=== PATIENT | female | born 1975 | race Two or more races ===

== ENCOUNTER 2023-10-13 20:18 | Inpatient (IN) | payer OTHER ==
[~2023-10-13] VITALS: Ht 137.2 cm; Wt 70.0 kg
[2023-10-13 21:28] LABS: Basophils # (auto) 0.1 10 ^3/uL (0-0.2); Basophils % (auto) 0.9 % (0.0-2.0); Eosinophils # (auto) 0.1 10 ^3/uL (0-0.8); Eosinophils % (auto) 0.8 % (0.0-7.0); Hematocrit 41.6 % (36.0-46.0); Hemoglobin 14.1 g/dL (12.2-16.2); Lymphocytes # (auto) 0.8 10 ^3/uL (0.4-5.4); Lymphocytes % (auto) 6.8 % (10.0-50.0); Mean Corpuscular Hemoglobin 32.3 pg (28.0-32.0); Mean Corpuscular Hgb Conc. 33.9 g/dL (32.0-36.0); Mean Corpuscular Volume 95.2 fL (80.0-100.0); Monocytes # (auto) 0.6 10 ^3/uL (0-1.3); Monocytes % (auto) 5.6 % (0.0-12.0); Neutrophils # (auto) 9.5 10 ^3/uL (1.6-8.6); Neutrophils % (auto) 85.9 % (37.0-80.0); Red Blood Cells 4.36 10^6/uL (4.0-5.20); White Blood Cell 11.1 10^3/uL (4.4-10.8)
[2023-10-13 21:45] VITALS: PULSE 128; RESP 26; O2SAT 97
[2023-10-13 21:57] LABS: Alanine Aminotransferase 31 U/L (7-40); Albumin 4.5 g/dL (3.2-4.8); Alkaline Phosphatase 107 U/L (46-116); Anion Gap 9 (5-15); Aspartate Aminotransferase 18 U/L (13-40); BUN/Creatinine Ratio 12.6 (10.0-20.0); Blood Urea Nitrogen 11 mg/dL (9-23); Calcium 9.9 mg/dL (8.7-10.4); Carbon Dioxide 23 mmol/L (20-30); Chloride 110 mmol/L (98-107); Glucose 130 mg/dL (74-106); Potassium 3.6 mmol/L (3.5-5.1); Sodium 142 mmol/L (136-145)
[2023-10-13 21:58] LABS: Bilirubin, Total 0.5 mg/dL (0.2-1.0); Total Protein 6.8 g/dL (5.7-8.2)
[2023-10-13 23:01] LABS: Urine Amorphous Crystal FEW /hpf (None Seen); Urine Bacteria FEW /hpf (None Seen); Urine Blood Negative /uL (Negative); Urine Clarity Clear (Clear); Urine Color Colorless (Yellow); Urine Protein, UAD Negative (Negative); Urine Specific Gravity 1.004 (1.001-1.035); Urine Urobilinogen Normal (Negative); Urine WBC 5 /hpf (0 - 5); Urine pH 6.5 (5.0-9.0)
[2023-10-13] MEDS: cloNIDine HCL 0.1 MG TAB PO ONE (23:12)
[2023-10-13] MEDS: LABETALOL HCL 20 MG/4 ML VL IV ONE (23:53)
[2023-10-14] VITALS (8 sets, daily range): BP systolic 111–129; BP diastolic 67–90; PULSE 73–89; RESP 16–18; TEMP 97.3–98; O2SAT 93–96
[2023-10-14] MEDS ORDERED: MORPHINE SULFATE INJ 2 MG/ml SYRG IV PRN (00:15)
[2023-10-14] MEDS ORDERED: ACETAMINOPHEN 325 MG TAB PO PRN (00:15)
[2023-10-14] MEDS ORDERED: NITROGLYCERIN 0.4 MG SL TAB SL PRN (00:15)
[2023-10-14] MEDS ORDERED: ONDANSETRON HCL 4 MG/2 ML VIAL IV PRN (00:15)
[2023-10-14] MEDS ORDERED: TEMAZEPAM 15 MG CAP PO PRN (00:15)
[2023-10-14] MEDS ORDERED: hydrALAZINE HCL 20 MG/ML VL IV ONE (02:15)
[2023-10-14 06:35] LABS: Anion Gap 7 (5-15); Carbon Dioxide 26 mmol/L (20-30); Chloride 108 mmol/L (98-107); Potassium 3.8 mmol/L (3.5-5.1); Sodium 141 mmol/L (136-145)
[2023-10-14 06:37] LABS: Calcium 9.5 mg/dL (8.7-10.4)
[2023-10-14 06:41] LABS: Glucose 83 mg/dL (74-106)
[2023-10-14 06:42] LABS: BUN/Creatinine Ratio 11.7 (10.0-20.0); Blood Urea Nitrogen 9 mg/dL (9-23)
[2023-10-14 17:03] LABS: Amphetamine Screen, Urine Neg (NEGATIVE); Benzodiazephine Screen, Urine Neg (NEGATIVE)
[2023-10-14 17:04] LABS: Barbiturate Scree,Urine Neg (NEGATIVE); Cannabinoid Screen, Urine Neg (NEGATIVE); Cocaine Screen, Urine Neg (NEGATIVE); Opiate Scree,Urine Neg (NEGATIVE); Phencyclidine Screen, Urine Neg (NEGATIVE)
[2023-10-15 01:00] VITALS: BP 121/79; PULSE 80; RESP 15; TEMP 97.9; O2SAT 97
[2023-10-15 05:00] VITALS: BP 110/68; PULSE 73; RESP 15; TEMP 97.6; O2SAT 98
[2023-10-15 08:00] VITALS: PULSE 69; RESP 15; O2SAT 100
[2023-10-15 08:30] VITALS: PULSE 91
[2023-10-15 09:00] VITALS: BP 113/72; PULSE 61; RESP 18; TEMP 98.4; O2SAT 97
[2023-10-15] MEDS ORDERED: METO25TA36 PO (11:39)
== END 2023-10-15 12:00 | disposition home or self-care (01) | DRG 310 ==
LOC: ER 20:18 → TELE 10-14 00:08 → TELE-EAST 10-14 03:05
PROVIDERS: ADMIT Nurse Practitioner; ATTEND Nurse Practitioner Acute Care
DX: R00.0 Tachycardia, unspecified (principal); R00.2 Palpitations; E66.9 Obesity, unspecified; I10 Essential (primary) hypertension; I44.7 Left bundle-branch block, unspecified; F17.210 Nicotine dependence, cigarettes, uncomplicated; F10.10 Alcohol abuse, uncomplicated; Z68.37 Body mass index [BMI] 37.0-37.9, adult; Z90.5 Acquired absence of kidney; Z79.899 Other long term (current) drug therapy; Z83.3 Family history of diabetes mellitus; Z82.49 Family history of ischemic heart disease and other diseases of the circulatory system; Z80.8 Family history of malignant neoplasm of other organs or systems; Z90.49 Acquired absence of other specified parts of digestive tract; Y90.9 Presence of alcohol in blood, level not specified
CPT/HCPCS: 36415; 70450; 71045; 80048; 80053; 80307; 81001; 83735; 84443; 84484; 85025; 85379; 93005; 93306; G0378